=== PATIENT | male | born 1985 | race Caucasian/White ===

== ENCOUNTER 2016-07-29 05:44 | Day surgery (SDC) | payer BC ==
[~2016-07-29] VITALS: Ht 182.9 cm; Wt 132.0 kg
[~2016-07-29 05:44] MED LIST: DAILY MULTIPLE1 EACH PO; ZYRTEC10 M3 PO
[2016-07-29 06:19] VITALS: BP 158/79
[2016-07-29] MEDS ORDERED: PERCOCET 5/31 TABLET PO (08:53)
[2016-07-29 10:05] VITALS: BP 142/81
[2016-07-29 11:15] VITALS: BP 144/72
== END 2016-07-29 11:47 | disposition home or self-care (01) ==
LOC: SDC
PROC: 0WUF4JZ Supplement Abdominal Wall with Synthetic Substitute, Percutaneous Endoscopic Approach (ICD-10-PCS; principal; 2016-07-29)
DX: K42.0 Umbilical hernia with obstruction, without gangrene (principal); Z68.41 Body mass index [BMI] 40.0-44.9, adult; Z84.1 Family history of disorders of kidney and ureter; Z80.1 Family history of malignant neoplasm of trachea, bronchus and lung
CPT/HCPCS: C1781; J0330; J0690; J1100; J1885; J2405; J3010